=== PATIENT | male | born 1970 | race Caucasian/White ===

== ENCOUNTER → 2021-06-17 | Outpatient (CLI) | payer OTHER | LOC: CT 13:00 | PROVIDERS: ATTEND Radiology Radiation Oncology | DX: C61 Malignant neoplasm of prostate (principal) | CPT/HCPCS: 76380 ==

== ENCOUNTER → 2021-06-20 | Outpatient (CLI) | payer OTHER ==
[~2021-06-20] MED LIST: GADOTERATE 7.5 MMOL/15ML VIAL. IVP ONE
--- NOTE | 2021-06-20 17:25 | RAD ---
EXAMINATION: Prostate MRI with and without IV contrast. INDICATION: Prostate cancer, status post prostatectomy, staging. COMPARISON: None. PSA: Not available at time of. TECHNIQUE: Multiplanar multisequence MRI of the pelvis obtained. Axial T1-weighted images precontrast and dynamic contrast-enhanced imaging was performed following administration of IV contrast. FINDINGS: Postsurgical changes of radical prostatectomy. No discrete mass, abnormal enhancement or diffusion re striction in the surgical bed to suggest residual/recurrent tumor. No lymphadenopathy in the pelvis b y size criteria. Urinary bladder is unremarkable with no focal mass or thickening. No pelvic free flu id. No bowel dilation. No suspicious osseous lesion. There is a 7 mm dark T1 signal intensity focus in th e left iliac bone, corresponds to peripherally sclerotic lesion seen on CT exam which appears unchang ed since July 2020. Findings favor to represent benign etiology such as atypical bone island. Right hip prosthesis. IMPRESSION: Post radical prostatectomy changes with no local recurrent/residual tumor or pelvic metastasis. Electronically signed by: Ember Shelby MD (06/20/2021 5:23 PM) [id number]
== END ==
LOC: MRI 10:52
PROVIDERS: ATTEND Radiology Radiation Oncology
DX: C61 Malignant neoplasm of prostate (principal)
CPT/HCPCS: 72197; A9575

== ENCOUNTER → 2021-07-01 | Outpatient (CLI) | payer OTHER ==
[2021-07-04 09:16] LABS: TESTOSTERONE FREE 0.17 ng/dL (5.00-21.00)
== END ==
LOC: LAB 12:25
PROVIDERS: ATTEND Radiology Radiation Oncology
DX: C61 Malignant neoplasm of prostate (principal)
CPT/HCPCS: 36415; 84153; 84402; 84403; G0103

== ENCOUNTER → 2021-08-06 | Outpatient (CLI) | payer OTHER ==
[2021-08-06 14:20] LABS: BASO % 1 % (0-3); EOS # 0.4 x10^3/uL (0.0-0.7); EOS % 8 % (0-3); HEMATOCRIT 40.1 % (39.0-53.0); HEMOGLOBIN 13.7 g/dL (13.0-17.5); LYMPH # 0.5 x10^3/uL (1.0-4.8); LYMPH % 9 % (24-48); MEAN CORPUSCULAR HEMOGLOBIN 30 pg (25-35); MEAN CORPUSCULAR HGB CONC 34 g/dL (31-37); MEAN CORPUSCULAR VOLUME 89 fL (79-100); MONO # 0.5 x10^3/uL (0.0-1.1); MONO % 10 % (0-9); NEUT # 4.1 x10^3/uL (1.8-7.7); NEUT % 74 % (31-73); PLATELET COUNT 236 x10^3/uL (140-400); RED BLOOD COUNT 4.52 x10^6/uL (4.30-5.70); WHITE BLOOD COUNT 5.6 x10^3/uL (4.0-11.0)
[2021-08-06 14:36] LABS: CALCIUM 9.2 mg/dL (8.5-10.1); CREATININE 1.3 mg/dL (0.7-1.3); GFR 58.7
[2021-08-06 14:43] LABS: ALBUMIN 3.6 g/dL (3.4-5.0); ALBUMIN/GLOBULIN RATIO 0.9 (1.0-1.7); TOTAL BILIRUBIN 0.3 mg/dL (0.2-1.0); TOTAL PROTEIN 7.6 g/dL (6.4-8.2)
[2021-08-07 15:16] LABS: FREE PSA/PSA RATIO 12.5 % (.); PSA FREE 0.05 ng/mL; PSA TOTAL 0.4 ng/mL (0.0-4.0)
[2021-08-10 17:09] LABS: TESTOSTERONE FREE 0.15 ng/dL (5.00-21.00)
== END ==
LOC: ONCLAB 13:01
PROVIDERS: ATTEND Internal Medicine Hematology & Oncology
DX: C61 Malignant neoplasm of prostate (principal)
CPT/HCPCS: 36415; 80053; 84153; 84154; 84402; 84403; 85025

== ENCOUNTER → 2021-09-17 | Outpatient (CLI) | payer OTHER ==
[2021-09-17 13:26] LABS: BASO % 1 % (0-3); EOS # 0.3 x10^3/uL (0.0-0.7); EOS % 6 % (0-3); HEMATOCRIT 42.6 % (39.0-53.0); HEMOGLOBIN 14.2 g/dL (13.0-17.5); LYMPH # 0.7 x10^3/uL (1.0-4.8); LYMPH % 14 % (24-48); MEAN CORPUSCULAR HEMOGLOBIN 30 pg (25-35); MEAN CORPUSCULAR HGB CONC 33 g/dL (31-37); MEAN CORPUSCULAR VOLUME 90 fL (79-100); MONO # 0.6 x10^3/uL (0.0-1.1); MONO % 11 % (0-9); NEUT # 3.3 x10^3/uL (1.8-7.7); NEUT % 67 % (31-73); PLATELET COUNT 258 x10^3/uL (140-400); RED BLOOD COUNT 4.73 x10^6/uL (4.30-5.70); RED CELL DISTRIBUTION WIDTH 15.6 % (11.5-14.5); WHITE BLOOD COUNT 4.9 x10^3/uL (4.0-11.0)
[2021-09-17 15:22] LABS: CALCIUM 9.3 mg/dL (8.5-10.1); CREATININE 1.1 mg/dL (0.7-1.3); GFR 71.1; POTASSIUM 3.8 mmol/L (3.5-5.1)
[2021-09-17 15:28] LABS: ALBUMIN 3.6 g/dL (3.4-5.0); ALBUMIN/GLOBULIN RATIO 0.8 (1.0-1.7); TOTAL BILIRUBIN 0.4 mg/dL (0.2-1.0); TOTAL PROTEIN 7.9 g/dL (6.4-8.2)
[2021-09-18 13:19] LABS: PSA FREE 0.03 ng/mL; PSA TOTAL 0.3 ng/mL (0.0-4.0)
== END ==
LOC: ONCLAB 13:00
PROVIDERS: ATTEND Internal Medicine Hematology & Oncology
DX: C61 Malignant neoplasm of prostate (principal)
CPT/HCPCS: 36415; 80053; 84153; 84154; 85025